=== PATIENT | male | born 1950 | race Caucasian/White ===

== ENCOUNTER 2022-12-01 08:42 | Outpatient (RCR) | payer MEDICARE, BC ==
[2022-12-23] MEDS ORDERED: HYDR-3490 PO (10:49)
[2022-12-23] MEDS ORDERED: AMLO10TA PO (10:49)
[2022-12-23] MEDS ORDERED: ESOM1CAP5 PO (10:49)
[2022-12-23] MEDS ORDERED: LISI20TA33 PO (10:49)
[2022-12-23] MEDS ORDERED: LIPI80TA PO (10:49)
[2022-12-23] MEDS ORDERED: ALLO300T2 PO (10:49)
[2022-12-23] MEDS ORDERED: CLOP75TA2 PO (10:49)
[2022-12-23] MEDS ORDERED: POTA-151 PO (10:49)
[2022-12-23] MEDS ORDERED: ASPI81CH33 PO (10:49)
[2022-12-23] MEDS ORDERED: HYDR50TAB PO (15:59)
== END 2022-12-22 ==
LOC: M OT 08:42
PROVIDERS: ATTEND Registered Nurse
DX: I69.398 Other sequelae of cerebral infarction (principal); R26.89 Other abnormalities of gait and mobility

== ENCOUNTER 2022-12-23 09:37 | Inpatient (IN) | payer MEDICARE, BC ==
[~2022-12-23] VITALS: Ht 165.1 cm; Wt 76.3 kg
[2022-12-23 10:38] LABS: BASO % 0.4 % (0.0-1.0); EOS # 0.1 10^3/uL (0.0-0.5); EOS % 0.9 % (0.0-3.0); HEMATOCRIT 42.3 % (42.0-52.0); HEMOGLOBIN 14.3 g/dl (13.5-17.5); LYMPH # 1.3 10^3/uL (1.5-5.0); LYMPH % 11.3 % (24.0-44.0); MEAN CORPUSCULAR HEMOGLOBIN 31.5 pg (27.0-33.0); MEAN CORPUSCULAR HGB CONC 33.8 g/dl (32.0-36.5); MEAN CORPUSCULAR VOLUME 93.2 fl (80.0-96.0); MONO # 1.1 10^3/uL (0.0-0.8); MONO % 9.3 % (2.0-8.0); NEUTROPHILS # 8.8 10^3/uL (1.5-8.5); NEUTROPHILS % 77.6 % (36.0-66.0); PLATELET COUNT, AUTOMATED 220 10^3/uL (150-450); RED BLOOD COUNT 4.54 10^6/uL (4.30-6.10); WHITE BLOOD COUNT 11.3 10^3/uL (4.0-10.0)
[2022-12-23] MEDS ORDERED: HYDR-3490 PO (10:49)
[2022-12-23] MEDS ORDERED: ASPI81CH33 PO (10:49)
[2022-12-23] MEDS ORDERED: AMLO10TA PO (10:49)
[2022-12-23] MEDS ORDERED: LISI20TA33 PO (10:49)
[2022-12-23] MEDS ORDERED: CLOP75TA2 PO (10:49)
[2022-12-23] MEDS ORDERED: ALLO300T2 PO (10:49)
[2022-12-23] MEDS ORDERED: ESOM1CAP5 PO (10:49)
[2022-12-23] MEDS ORDERED: LIPI80TA PO (10:49)
[2022-12-23] MEDS ORDERED: POTA-151 PO (10:49)
[2022-12-23 10:54] LABS: INR 0.84; PROTHROMBIN TIME 11.7 SECONDS (12.5-14.5)
[2022-12-23 10:55] LABS: PARTIAL THROMBOPLASTIN TIME 26.5 SECONDS (24.8-34.2)
[2022-12-23 11:07] LABS: RSV AMPLIFICATION NEGATIVE (NEGATIVE)
[2022-12-23 11:09] LABS: CALCIUM LEVEL 9.2 MG/DL (8.3-10.6); CREATININE FOR GFR 1.81 MG/DL (0.70-1.30); GLOMERULAR FILTRATION RATE 39.7 (>42); POTASSIUM SERUM 3.5 MMOL/L (3.5-5.1)
[2022-12-23] MEDS ORDERED: HYDR50TAB PO (15:59)
[2022-12-23 16:00] VITALS: BP 126/74
[2022-12-23] MEDS ORDERED: HOME MED LIST COMPLETE! XX SCH (16:25)
[2022-12-23 22:00] VITALS: BP 124/70
[2022-12-24 06:00] VITALS: BP 124/71
[2022-12-24 06:29] LABS: HEMATOCRIT 42.2 % (42.0-52.0); HEMOGLOBIN 14.2 g/dl (13.5-17.5); MEAN CORPUSCULAR HEMOGLOBIN 31.5 pg (27.0-33.0); MEAN CORPUSCULAR HGB CONC 33.6 g/dl (32.0-36.5); MEAN CORPUSCULAR VOLUME 93.6 fl (80.0-96.0); PLATELET COUNT, AUTOMATED 233 10^3/uL (150-450); RED BLOOD COUNT 4.51 10^6/uL (4.30-6.10); WHITE BLOOD COUNT 9.8 10^3/uL (4.0-10.0)
[2022-12-24 07:00] LABS: CALCIUM LEVEL 9.2 MG/DL (8.3-10.6); CREATININE FOR GFR 2.06 MG/DL (0.70-1.30); GLOMERULAR FILTRATION RATE 34.2 (>42); POTASSIUM SERUM 3.3 MMOL/L (3.5-5.1)
[2022-12-24] MEDS: ATORVASTATIN 20 MG TAB PO SCH (08:35)
[2022-12-24] MEDS: ASPIRIN 81MG CHEW TABLET PO SCH (08:35)
[2022-12-24] MEDS: CLOPIDOGREL 75 MG TAB PO SCH (08:36)
[2022-12-24] MEDS: POTASSIUM CHLORIDE 10MEQ SR TABLET PO SCH ×2 (08:37→20:10)
[2022-12-24] MEDS ORDERED: allopurinoL 300 MG TAB PO SCH (09:00)
[2022-12-24] MEDS ORDERED: OMEPRAZOLE 20MG CAP PO SCH (09:00)
[2022-12-24] MEDS ORDERED: LACTATED RINGER'S 1000 ML IV ONE (10:50)
[2022-12-24] MEDS: LR 500 ML IV SCH ×2 (11:20→20:09)
[2022-12-24 13:59] LABS: APPEARANCE, URINE MANUAL CLEAR (CLEAR); COLOR, URINE MANUAL YELLOW (YELLOW); SPECIFIC GRAVITY,URINE MANUAL 1.015 (1.002-1.035)
[2022-12-24 14:00] VITALS: BP 132/81
[2022-12-24 14:00] LABS: BILIRUBIN, URINE MANUAL NEGATIVE (NEGATIVE); BLOOD URINE MANUAL NEGATIVE (NEGATIVE); GLUCOSE, URINE (UA) MANUAL NEGATIVE (NEGATIVE); KETONE, URINE MANUAL NEGATIVE (NEGATIVE); LEUKOCYTE ESTERASE, URINE MAN NEGATIVE (NEGATIVE); NITRITE, URINE MANUAL NEGATIVE (NEGATIVE); PROTEIN, URINE MANUAL TRACE mg/dL (NEGATIVE); UROBILINOGEN, URINE MANUAL NORMAL (NORMAL)
[2022-12-24 14:26] LABS: BACTERIA, URINE SMALL AMOUNT; HYALINE CAST, URINE NONE SEEN /lpf (0-1); MUCUS, URINE SMALL AMOUNT (NEGATIVE); RBC, URINE 0-1 /hpf (0-3); SQUAMOUS EPITHELIAL CELL URINE SMALL AMOUNT /hpf (SMALL AMT); WBC, URINE 0-1 /hpf (0-3)
[2022-12-24 20:45] VITALS: BP 134/83
[2022-12-24] MEDS: POLYVINYL ALCOHOL OPHTH SOLN 15ML (LIQUITEARS) OU PRN (22:57)
[2022-12-25 06:05] LABS: BASO % 0.2 % (0.0-1.0); EOS # 0.1 10^3/uL (0.0-0.5); EOS % 0.5 % (0.0-3.0); HEMATOCRIT 40.9 % (42.0-52.0); HEMOGLOBIN 13.8 g/dl (13.5-17.5); LYMPH # 1.2 10^3/uL (1.5-5.0); LYMPH % 10.1 % (24.0-44.0); MEAN CORPUSCULAR HEMOGLOBIN 31.3 pg (27.0-33.0); MEAN CORPUSCULAR HGB CONC 33.7 g/dl (32.0-36.5); MEAN CORPUSCULAR VOLUME 92.7 fl (80.0-96.0); MONO % 8.1 % (2.0-8.0); NEUTROPHILS # 9.8 10^3/uL (1.5-8.5); NEUTROPHILS % 80.6 % (36.0-66.0); PLATELET COUNT, AUTOMATED 229 10^3/uL (150-450); RED BLOOD COUNT 4.41 10^6/uL (4.30-6.10); WHITE BLOOD COUNT 12.1 10^3/uL (4.0-10.0)
[2022-12-25 06:36] LABS: CREATININE FOR GFR 1.64 MG/DL (0.70-1.30); GLOMERULAR FILTRATION RATE 44.4 (>42); POTASSIUM SERUM 4.1 MMOL/L (3.5-5.1)
[2022-12-25] MEDS: LR 500 ML IV SCH (06:50)
[2022-12-25 06:51] VITALS: BP 136/83
[2022-12-25] MEDS: ATORVASTATIN 20 MG TAB PO SCH (11:22)
[2022-12-25] MEDS: POTASSIUM CHLORIDE 10MEQ SR TABLET PO SCH ×2 (11:22→20:51)
[2022-12-25] MEDS: CLOPIDOGREL 75 MG TAB PO SCH (11:22)
[2022-12-25] MEDS: ASPIRIN 81MG CHEW TABLET PO SCH (11:22)
[2022-12-25] MEDS: PANTOPRAZOLE 40MG TAB (PROTONIX) PO SCH (11:22)
[2022-12-25 11:26] LABS: HEMOGLOBIN A1c 5.8 % (4.0-6.0)
[2022-12-25 14:00] VITALS: BP 160/100
[2022-12-25 18:05] VITALS: BP 150/90
[2022-12-25] MEDS ORDERED: APIXABAN 2.5 MG TAB (ELIQUIS) PO SCH (21:00)
[2022-12-25 22:00] VITALS: BP 150/86
[2022-12-26] MEDS: POLYVINYL ALCOHOL OPHTH SOLN 15ML (LIQUITEARS) OU PRN ×2 (05:06→08:30)
[2022-12-26 06:00] VITALS: BP 136/84
[2022-12-26 06:07] LABS: BASO # 0.1 10^3/uL (0.0-0.2); BASO % 0.5 % (0.0-1.0); EOS # 0.2 10^3/uL (0.0-0.5); EOS % 1.5 % (0.0-3.0); HEMATOCRIT 41.7 % (42.0-52.0); HEMOGLOBIN 13.9 g/dl (13.5-17.5); LYMPH # 2.2 10^3/uL (1.5-5.0); LYMPH % 19.8 % (24.0-44.0); MEAN CORPUSCULAR HEMOGLOBIN 31.3 pg (27.0-33.0); MEAN CORPUSCULAR HGB CONC 33.3 g/dl (32.0-36.5); MEAN CORPUSCULAR VOLUME 93.9 fl (80.0-96.0); MONO # 1.2 10^3/uL (0.0-0.8); MONO % 10.6 % (2.0-8.0); NEUTROPHILS # 7.4 10^3/uL (1.5-8.5); NEUTROPHILS % 67.2 % (36.0-66.0); PLATELET COUNT, AUTOMATED 218 10^3/uL (150-450); RED BLOOD COUNT 4.44 10^6/uL (4.30-6.10)
[2022-12-26 06:38] LABS: CHOLESTEROL RISK RATIO 2.6 (<5); CREATININE FOR GFR 1.49 MG/DL (0.70-1.30); GLOMERULAR FILTRATION RATE 49.6 (>42); HDL CHOLESTEROL 46.1 MG/DL (>40); LDL CHOLESTEROL 62.9 MG/DL (<100); POTASSIUM SERUM 3.8 MMOL/L (3.5-5.1)
[2022-12-26] MEDS: PANTOPRAZOLE 40MG TAB (PROTONIX) PO SCH (08:27)
[2022-12-26] MEDS: ASPIRIN 81MG CHEW TABLET PO SCH (08:28)
[2022-12-26] MEDS: APIXABAN 2.5 MG TAB (ELIQUIS) PO SCH ×2 (08:28→22:11)
[2022-12-26] MEDS: ATORVASTATIN 20 MG TAB PO SCH (08:29)
[2022-12-26] MEDS: POTASSIUM CHLORIDE 10MEQ SR TABLET PO SCH (08:29)
[2022-12-26 14:00] VITALS: BP 159/92
[2022-12-26] MEDS ORDERED: ACETAMINOPHEN TAB 650MG DOSE (2X325MG) PO PRN (21:25)
[2022-12-26 22:14] VITALS: BP 159/91
[2022-12-27] MEDS: SODIUM CHLORIDE NASAL 0.65% SPRAY BTL (OCEAN) PRN ×2 (01:13→08:41)
[2022-12-27 05:38] LABS: BASO # 0.1 10^3/uL (0.0-0.2); BASO % 0.5 % (0.0-1.0); EOS # 0.2 10^3/uL (0.0-0.5); EOS % 2.2 % (0.0-3.0); HEMATOCRIT 43.2 % (42.0-52.0); HEMOGLOBIN 14.5 g/dl (13.5-17.5); LYMPH # 2.5 10^3/uL (1.5-5.0); LYMPH % 24.1 % (24.0-44.0); MEAN CORPUSCULAR HEMOGLOBIN 31.3 pg (27.0-33.0); MEAN CORPUSCULAR HGB CONC 33.6 g/dl (32.0-36.5); MEAN CORPUSCULAR VOLUME 93.1 fl (80.0-96.0); MONO # 1.2 10^3/uL (0.0-0.8); MONO % 11.1 % (2.0-8.0); NEUTROPHILS # 6.5 10^3/uL (1.5-8.5); NEUTROPHILS % 61.6 % (36.0-66.0); PLATELET COUNT, AUTOMATED 246 10^3/uL (150-450); RED BLOOD COUNT 4.64 10^6/uL (4.30-6.10); WHITE BLOOD COUNT 10.5 10^3/uL (4.0-10.0)
[2022-12-27 06:05] LABS: CALCIUM LEVEL 9.6 MG/DL (8.3-10.6); CREATININE FOR GFR 1.5 MG/DL (0.70-1.30); GLOMERULAR FILTRATION RATE 49.3 (>42); POTASSIUM SERUM 3.5 MMOL/L (3.5-5.1)
[2022-12-27 06:36] VITALS: BP 150/91
[2022-12-27] MEDS: ASPIRIN 81MG CHEW TABLET PO SCH (08:38)
[2022-12-27] MEDS: APIXABAN 2.5 MG TAB (ELIQUIS) PO SCH (08:38)
[2022-12-27 08:39] VITALS: BP 150/91
[2022-12-27] MEDS: POTASSIUM CHLORIDE 10MEQ SR TABLET PO SCH (08:39)
[2022-12-27] MEDS: ATORVASTATIN 20 MG TAB PO SCH (08:39)
[2022-12-27] MEDS: PANTOPRAZOLE 40MG TAB (PROTONIX) PO SCH (08:40)
[2022-12-27] MEDS: POLYVINYL ALCOHOL OPHTH SOLN 15ML (LIQUITEARS) OU PRN (08:41)
[2022-12-27] MEDS ORDERED: ELIQ2.5T PO (08:46)
[2022-12-27] MEDS ORDERED: FLON1SPR NARES (08:46)
[2022-12-27] MEDS ORDERED: Sodium Chloride Nasal Spray (08:46)
[2022-12-27] MEDS ORDERED: ELIQ5TAB PO (08:46)
[2022-12-27] MEDS ORDERED: ALLO10TA PO ×2 (08:48→08:49)
[2022-12-27] MEDS ORDERED: Pill Cutter XX (08:49)
[2022-12-27] MEDS ORDERED: PILL CUTTER 1 EACH XX PRN (08:50)
[2022-12-27] MEDS ORDERED: FLUTICASONE PROP 0.05% NASAL SPRAY 16 GM (FLONASE) NARES SCH (09:00)
[2022-12-27] MEDS ORDERED: allopurinoL 100 MG TAB PO SCH (09:00)
== END 2022-12-27 12:45 | disposition home or self-care (01) | DRG 65 ==
LOC: M ED 09:37 → M ED INP 14:37 → ENRESERV 15:06 → M MSPAV 15:55 → OBSVTOIN 12-24 08:57
PROVIDERS: ADMIT Student in an Organized Health Care Education/Training Program; ATTEND Student in an Organized Health Care Education/Training Program
PROC: B246ZZZ Ultrasonography of Right and Left Heart (ICD-10-PCS; principal; 2022-12-24)
DX: I63.532 Cerebral infarction due to unspecified occlusion or stenosis of left posterior cerebral artery (principal); I50.32 Chronic diastolic (congestive) heart failure; I13.0 Hypertensive heart and chronic kidney disease with heart failure and stage 1 through stage 4 chronic kidney disease, or unspecified chronic kidney disease; N18.30 Chronic kidney disease, stage 3 unspecified; E78.5 Hyperlipidemia, unspecified; G47.33 Obstructive sleep apnea (adult) (pediatric); H54.3 Unqualified visual loss, both eyes; I87.2 Venous insufficiency (chronic) (peripheral); K21.9 Gastro-esophageal reflux disease without esophagitis; Z87.442 Personal history of urinary calculi; Z79.82 Long term (current) use of aspirin; Z79.02 Long term (current) use of antithrombotics/antiplatelets; Z79.899 Other long term (current) drug therapy; Z91.041 Radiographic dye allergy status

== ENCOUNTER 2023-02-17 10:26 | Day surgery (SDC) | payer MEDICARE, BC ==
[~2023-02-17] VITALS: Ht 165.1 cm; Wt 73.1 kg
[~2023-02-17 10:26] MED LIST: ALLO100T PO; ALLO10TA PO; ALLO300T2 PO; AMLO10TA PO; ASPI81CH33 PO; CLOP75TA2 PO; ELIQ2.5T PO; ELIQ5TAB PO; ESOM1CAP5 PO; FLON1SPR NARES; HYDR-3490 PO; HYDR50TAB PO; LIPI80TA PO; LISI20TA33 PO; POTA-151 PO; POTA1TAB14 PO; Pill Cutter XX; Sodium Chloride Nasal Spray; ceFAZolin SOD 2 GM in IV 1 EA IV ONE
[2023-02-17] MEDS ORDERED: LR 1,000 ML IV SCH (11:00)
[2023-02-17] MEDS ORDERED: LIDOCAINE 1% MDV 20ML VIAL As Ordered ONE (12:18)
[2023-02-17] MEDS ORDERED: propofoL 200 MG/20 ML VIAL As Ordered ONE ×2 (12:18→12:20)
[2023-02-17] MEDS ORDERED: LIDOCAINE 2% 100MG/5ML SDV (FOR ANES.) As Ordered ONE (12:18)
[2023-02-17] MEDS ORDERED: ONDANSETRON 4MG 2ML VIAL As Ordered ONE (12:19)
[2023-02-17] MEDS ORDERED: fentaNYL 100 MCG/2 ML INJECTION As Ordered ONE (12:22)
[2023-02-17 13:00] VITALS: BP 119/63
== END 2023-02-17 13:28 | disposition home or self-care (01) ==
LOC: M SDC 10:26
PROVIDERS: ATTEND Internal Medicine Cardiovascular Disease
DX: I63.9 Cerebral infarction, unspecified (principal); I10 Essential (primary) hypertension; E78.5 Hyperlipidemia, unspecified; K21.9 Gastro-esophageal reflux disease without esophagitis; Z91.041 Radiographic dye allergy status; Z79.01 Long term (current) use of anticoagulants; Z79.82 Long term (current) use of aspirin; Z79.899 Other long term (current) drug therapy; Z86.73 Personal history of transient ischemic attack (TIA), and cerebral infarction without residual deficits; G47.33 Obstructive sleep apnea (adult) (pediatric)
CPT/HCPCS: 33285; 87635; C1764; J0690; J1100; J2405; J3010

== ENCOUNTER 2023-11-16 16:17 | Observation (INO) | payer MEDICARE, BC ==
[~2023-11-16] VITALS: Ht 165.1 cm; Wt 70.7 kg
[~2023-11-16 16:17] MED LIST changes: +POTA-298 PO; -POTA1TAB14 PO; -ceFAZolin SOD 2 GM in IV 1 EA IV ONE
[2023-11-16 18:16] LABS: BASO % 0.3 % (0.0-1.0); EOS # 0.2 10^3/uL (0.0-0.5); EOS % 2.2 % (0.0-3.0); HEMATOCRIT 40.8 % (42.0-52.0); HEMOGLOBIN 13.7 g/dl (13.5-17.5); LYMPH # 2.5 10^3/uL (1.5-5.0); LYMPH % 28.8 % (24.0-44.0); MEAN CORPUSCULAR HEMOGLOBIN 31.5 pg (27.0-33.0); MEAN CORPUSCULAR HGB CONC 33.6 g/dl (32.0-36.5); MEAN CORPUSCULAR VOLUME 93.8 fl (80.0-96.0); MONO # 0.6 10^3/uL (0.0-0.8); MONO % 7.3 % (2.0-8.0); NEUTROPHILS # 5.3 10^3/uL (1.5-8.5); NEUTROPHILS % 60.9 % (36.0-66.0); PLATELET COUNT, AUTOMATED 234 10^3/uL (150-450); RED BLOOD COUNT 4.35 10^6/uL (4.30-6.10); WHITE BLOOD COUNT 8.8 10^3/uL (4.0-10.0)
[2023-11-16 18:32] LABS: ALBUMIN 3.8 G/DL (3.2-5.2); BILIRUBIN,DIRECT 0.2 MG/DL (<0.4); BILIRUBIN,TOTAL 0.6 MG/DL (0.3-1.2); CALCIUM LEVEL 9.7 MG/DL (8.3-10.6); CREATININE FOR GFR 1.83 MG/DL (0.70-1.30); TOTAL PROTEIN 6.2 G/DL (5.7-8.2)
[2023-11-16 18:37] LABS: POTASSIUM SERUM 4.4 MMOL/L (3.5-5.1)
[2023-11-16] MEDS ORDERED: HYDROMORPHONE HCL 0.5 MG/ 0.5 ML SYRINGE IV ONE (21:25)
[2023-11-16] MEDS ORDERED: NS 1,000 ML IV ONE (21:25)
[2023-11-16] MEDS ORDERED: ONDANSETRON 4MG 2ML VIAL IV ONE (21:25)
[2023-11-16] MEDS ORDERED: FLEET ENEMA PR STA (23:04)
[2023-11-16] MEDS ORDERED: LACTULOSE 20GM/30ML SYRUP UDC PO ONE (23:05)
[2023-11-17 02:31] LABS: RSV AMPLIFICATION NEGATIVE (NEGATIVE)
[2023-11-17] MEDS ORDERED: HYDROMORPHONE HCL 0.5 MG/ 0.5 ML SYRINGE IV PRN (03:10)
[2023-11-17 05:58] VITALS: BP 128/86; TEMP 98.1; O2SAT 97
[2023-11-17] MEDS ORDERED: DOXA2TAB61 PO (06:54)
[2023-11-17] MEDS ORDERED: FLON1SPR (06:54)
[2023-11-17] MEDS ORDERED: ELIQ5TAB PO (06:54)
[2023-11-17] MEDS ORDERED: LISI10TA22 PO (06:54)
[2023-11-17] MEDS ORDERED: SENN8.6T28 PO (06:54)
[2023-11-17] MEDS ORDERED: VITA100093 PO (06:54)
[2023-11-17] MEDS ORDERED: SALI0.6530 NARES (06:54)
[2023-11-17] MEDS ORDERED: HOME MED LIST COMPLETE! XX SCH (06:55)
[2023-11-17] MEDS ORDERED: FLUTICASONE PROP 0.05% NASAL SPRAY 16 GM (FLONASE) PRN (07:20)
[2023-11-17] MEDS ORDERED: SODIUM CHLORIDE NASAL 0.65% SPRAY BTL (OCEAN) PRN (07:20)
[2023-11-17 08:14] LABS: CALCIUM LEVEL 9.3 MG/DL (8.3-10.6); CREATININE FOR GFR 1.64 MG/DL (0.70-1.30); GLOMERULAR FILTRATION RATE 44.3 (>42); POTASSIUM SERUM 3.8 MMOL/L (3.5-5.1)
[2023-11-17] MEDS ORDERED: APIXABAN 5 MG TAB (ELIQUIS) PO SCH (09:00)
[2023-11-17] MEDS ORDERED: SENOKOT S TAB PO SCH ×2 (09:00)
[2023-11-17] MEDS ORDERED: VITAMIN D 1,000 INTERNATIONAL UNITS TABLET PO SCH (09:00)
[2023-11-17] MEDS ORDERED: POTASSIUM CHLORIDE 10MEQ SR TABLET PO SCH (09:00)
[2023-11-17] MEDS ORDERED: allopurinoL 100 MG TAB PO SCH (09:00)
[2023-11-17] MEDS ORDERED: ATORVASTATIN 20 MG TAB PO SCH (09:00)
[2023-11-17 09:22] VITALS: BP 156/87
[2023-11-17] MEDS ORDERED: SENN-52 PO (09:57)
== END 2023-11-17 15:17 | disposition home or self-care (01) ==
LOC: M ED 16:17 → M ED INP 16:18 → ENRESERV 11-17 03:56 → M MSPAV 11-17 05:58
PROVIDERS: ADMIT Internal Medicine; ATTEND Student in an Organized Health Care Education/Training Program
DX: K59.00 Constipation, unspecified (principal); I69.398 Other sequelae of cerebral infarction; N18.9 Chronic kidney disease, unspecified; E11.9 Type 2 diabetes mellitus without complications; I10 Essential (primary) hypertension; E78.00 Pure hypercholesterolemia, unspecified; M10.9 Gout, unspecified; Z91.041 Radiographic dye allergy status; Z79.899 Other long term (current) drug therapy; Z79.01 Long term (current) use of anticoagulants; Z79.02 Long term (current) use of antithrombotics/antiplatelets; Z11.52 Encounter for screening for COVID-19
CPT/HCPCS: 36415; 74176; 80048; 80076; 83690; 85025; 87631; 96374; 96375; 97161; 99285; G0378; J1170; J2405

== ENCOUNTER 2023-11-27 13:41 | Inpatient (IN) | payer MEDICARE, BC ==
[2023-11-27] VITALS (9 sets, daily range): BP systolic 123–138; BP diastolic 71–77; TEMP 97.7; O2SAT 94–99
[~2023-11-27] VITALS: Ht 160 cm; Wt 69.0 kg
[~2023-11-27 13:41] MED LIST changes: +DOXA2TAB61 PO; +LISI10TA22 PO; +SALI0.6530 NARES; +SENN-52 PO; +SENN8.6T28 PO; +VITA100093 PO
[2023-11-27 16:32] LABS: BASO % 0.3 % (0.0-1.0); EOS # 0.1 10^3/uL (0.0-0.5); EOS % 0.8 % (0.0-3.0); HEMATOCRIT 38.6 % (42.0-52.0); HEMOGLOBIN 13.1 g/dl (13.5-17.5); LYMPH # 2.4 10^3/uL (1.5-5.0); LYMPH % 22.9 % (24.0-44.0); MEAN CORPUSCULAR HEMOGLOBIN 31.6 pg (27.0-33.0); MEAN CORPUSCULAR HGB CONC 33.9 g/dl (32.0-36.5); MEAN CORPUSCULAR VOLUME 93.2 fl (80.0-96.0); MONO # 0.7 10^3/uL (0.0-0.8); MONO % 6.3 % (2.0-8.0); NEUTROPHILS # 7.1 10^3/uL (1.5-8.5); NEUTROPHILS % 69.4 % (36.0-66.0); PLATELET COUNT, AUTOMATED 200 10^3/uL (150-450); RED BLOOD COUNT 4.14 10^6/uL (4.30-6.10); WHITE BLOOD COUNT 10.2 10^3/uL (4.0-10.0)
[2023-11-27 16:44] LABS: INR 1.2; PROTHROMBIN TIME 14.8 SECONDS (12.5-14.5)
[2023-11-27 16:45] LABS: PARTIAL THROMBOPLASTIN TIME 29.6 SECONDS (24.8-34.2)
[2023-11-27 17:00] LABS: BLOOD UREA NITROGEN 21 MG/DL (9-23); CALCIUM LEVEL 9.1 MG/DL (8.3-10.6); CARBON DIOXIDE LEVEL 27 MMOL/L (20-31); CHLORIDE LEVEL 105 MMOL/L (98-107); CK-MB VALUE MASS < 1.0 NG/ML (<3.6); CPK CREATINE PHOSPHOKINASE 81 U/L (46-171); CREATININE FOR GFR 1.73 MG/DL (0.70-1.30); GLOMERULAR FILTRATION RATE 41.7 (>42); GLUCOSE, FASTING 92 MG/DL (74-106); MB/CK RELATIVE INDEX 1.23 (< OR =4); POTASSIUM SERUM 3.9 MMOL/L (3.5-5.1); SODIUM LEVEL 139 MMOL/L (136-145)
[2023-11-27] MEDS ORDERED: ASPIRIN 81MG CHEW TABLET PO ONE (21:05)
[2023-11-27] MEDS ORDERED: RIVAROXABAN 15MG TAB (XARELTO) PO ONE (23:40)
[2023-11-28] VITALS (27 sets, daily range): BP systolic 111–136; BP diastolic 66–83; TEMP 97.2–97.9; O2SAT 95–99
[2023-11-28 06:43] LABS: BASO % 0.5 % (0.0-1.0); EOS # 0.1 10^3/uL (0.0-0.5); EOS % 1.9 % (0.0-3.0); HEMATOCRIT 37.2 % (42.0-52.0); HEMOGLOBIN 12.6 g/dl (13.5-17.5); LYMPH # 1.6 10^3/uL (1.5-5.0); LYMPH % 24.2 % (24.0-44.0); MEAN CORPUSCULAR HEMOGLOBIN 31.6 pg (27.0-33.0); MEAN CORPUSCULAR HGB CONC 33.9 g/dl (32.0-36.5); MEAN CORPUSCULAR VOLUME 93.2 fl (80.0-96.0); MONO # 0.5 10^3/uL (0.0-0.8); MONO % 7.5 % (2.0-8.0); NEUTROPHILS # 4.2 10^3/uL (1.5-8.5); NEUTROPHILS % 65.6 % (36.0-66.0); PLATELET COUNT, AUTOMATED 182 10^3/uL (150-450); RED BLOOD COUNT 3.99 10^6/uL (4.30-6.10); WHITE BLOOD COUNT 6.4 10^3/uL (4.0-10.0)
[2023-11-28 07:20] LABS: ALBUMIN 3.5 G/DL (3.2-5.2); BILIRUBIN,TOTAL 0.7 MG/DL (0.3-1.2); CALCIUM LEVEL 9.3 MG/DL (8.3-10.6); CREATININE FOR GFR 1.64 MG/DL (0.70-1.30); GLOMERULAR FILTRATION RATE 44.3 (>42); POTASSIUM SERUM 4.6 MMOL/L (3.5-5.1); TOTAL PROTEIN 5.7 G/DL (5.7-8.2)
[2023-11-28] MEDS ORDERED: MIRA1POW3 PO (08:56)
[2023-11-28] MEDS ORDERED: CVS50CAP PO (08:56)
[2023-11-28] MEDS ORDERED: PANTOPRAZOLE 40MG VIAL IV SCH (09:00)
[2023-11-28] MEDS ORDERED: HOME MED LIST COMPLETE! XX SCH (09:00)
[2023-11-28] MEDS: ASPIRIN 81MG CHEW TABLET PO SCH (09:09)
[2023-11-28] MEDS: PANTOPRAZOLE 40MG TAB (PROTONIX) PO SCH (09:10)
[2023-11-28] MEDS ORDERED: NS 1,000 ML IV ONE (10:50)
[2023-11-28] MEDS ORDERED: BISACODYL 10MG SUPP PR ONE (15:15)
[2023-11-28] MEDS: MIRALAX *UNIT DOSE* 17GM PACKET PO SCH (15:26)
[2023-11-28] MEDS: ACETAMINOPHEN TAB 650MG DOSE (2X325MG) PO PRN (15:26)
[2023-11-28] MEDS: RIVAROXABAN 15MG TAB (XARELTO) PO SCH (17:48)
[2023-11-28] MEDS: SENOKOT S TAB PO SCH (20:26)
[2023-11-28] MEDS: ATORVASTATIN 20 MG TAB PO SCH (21:03)
[2023-11-29] VITALS (25 sets, daily range): BP systolic 132–158; BP diastolic 72–84; TEMP 97.7–98.8; O2SAT 90–99
[2023-11-29] MEDS: ACETAMINOPHEN TAB 650MG DOSE (2X325MG) PO PRN (03:10)
[2023-11-29] MEDS: MIRALAX *UNIT DOSE* 17GM PACKET PO SCH (09:24)
[2023-11-29] MEDS: PANTOPRAZOLE 40MG TAB (PROTONIX) PO SCH (09:25)
[2023-11-29] MEDS: ASPIRIN 81MG CHEW TABLET PO SCH (09:25)
[2023-11-29] MEDS: SENOKOT S TAB PO SCH ×2 (09:25→20:48)
[2023-11-29] MEDS: BISACODYL 10MG SUPP PR SCH ×2 (11:41→20:48)
[2023-11-29] MEDS ORDERED: LACTULOSE 20GM/30ML SYRUP UDC PO SCH (12:00)
[2023-11-29] MEDS: ACETAMINOPHEN TAB 650MG DOSE (2X325MG) PO SCH ×2 (13:13→20:48)
[2023-11-29] MEDS: RIVAROXABAN 15MG TAB (XARELTO) PO SCH (17:45)
[2023-11-29] MEDS: ATORVASTATIN 20 MG TAB PO SCH (20:48)
[2023-11-30] VITALS (15 sets, daily range): BP systolic 135–162; BP diastolic 79–81; TEMP 97.3–97.6; O2SAT 95–98
[2023-11-30] MEDS ORDERED: ATOR1TAB21 PO (07:27)
[2023-11-30] MEDS ORDERED: XARE15TA PO (07:27)
[2023-11-30] MEDS ORDERED: ASPI81CH8 PO (07:27)
[2023-11-30] MEDS ORDERED: MIRALAX *UNIT DOSE* 17GM PACKET PO SCH (09:00)
[2023-11-30] MEDS: SENOKOT S TAB PO SCH (09:56)
[2023-11-30] MEDS: ASPIRIN 81MG CHEW TABLET PO SCH (09:56)
[2023-11-30] MEDS: PANTOPRAZOLE 40MG TAB (PROTONIX) PO SCH (09:57)
[2023-11-30] MEDS: ACETAMINOPHEN TAB 650MG DOSE (2X325MG) PO SCH (09:57)
[2023-11-30] MEDS: BISACODYL 10MG SUPP PR SCH (09:57)
[2023-11-30] MEDS ORDERED: NORV5TAB PO (12:45)
[2023-11-30] MEDS ORDERED: LISI10TA22 PO (12:47)
[2023-11-30] MEDS ORDERED: SENN-52 PO (12:48)
[2023-11-30] MEDS ORDERED: MIRA3350 PO (12:49)
[2023-11-30] MEDS ORDERED: SELF1KIT MC (12:51)
[2023-11-30] MEDS ORDERED: amLODIPine 5 MG TAB PO ONE (13:00)
== END 2023-11-30 13:56 | disposition home health service (06) | DRG 66 ==
LOC: M ED 13:41 → M ED INP 21:33 → M PCU 23:45
PROVIDERS: ADMIT Family Medicine; ATTEND General Practice
PROC: B246ZZZ Ultrasonography of Right and Left Heart (ICD-10-PCS; principal; 2023-11-29)
DX: I63.532 Cerebral infarction due to unspecified occlusion or stenosis of left posterior cerebral artery (principal); I12.9 Hypertensive chronic kidney disease with stage 1 through stage 4 chronic kidney disease, or unspecified chronic kidney disease; N18.30 Chronic kidney disease, stage 3 unspecified; E78.5 Hyperlipidemia, unspecified; I69.311 Memory deficit following cerebral infarction; G47.33 Obstructive sleep apnea (adult) (pediatric); I69.320 Aphasia following cerebral infarction; K21.9 Gastro-esophageal reflux disease without esophagitis; G93.89 Other specified disorders of brain; I69.398 Other sequelae of cerebral infarction; K59.00 Constipation, unspecified; H54.7 Unspecified visual loss; N50.82 Scrotal pain; K57.90 Diverticulosis of intestine, part unspecified, without perforation or abscess without bleeding; N50.3 Cyst of epididymis; Z87.442 Personal history of urinary calculi; Z79.01 Long term (current) use of anticoagulants; Z79.899 Other long term (current) drug therapy; Z91.041 Radiographic dye allergy status

== ENCOUNTER 2024-05-09 06:03 | Day surgery (SDC) | payer MEDICARE ==
[~2024-05-09] VITALS: Ht 165.1 cm; Wt 71.7 kg
[~2024-05-09 06:03] MED LIST changes: +AMLO2.5T3 PO; +ASPI81CH8 PO; +ATOR1TAB21 PO; +CVS1CHW13 PO; +CVS50CAP PO; +ESOM1CAP20 PO; -ESOM1CAP5 PO; +ESOM40CA35 PO; +LISI2.5T9 PO; +MIRA3350 PO; +MIRA33506 PO; +NORV5TAB PO; -SALI0.6530 NARES; +SELF1KIT MC; +SODI88SP NARES; +XARE15TA PO
[2024-05-09] MEDS ORDERED: LIDOCAINE 2% JELLY 6ML SYRINGE As Ordered ONE (07:09)
[2024-05-09] MEDS ORDERED: CETACAINE SPRAY 5GM As Ordered ONE (07:10)
[2024-05-09] MEDS ORDERED: LR 1,000 ML IV SCH (07:10)
[2024-05-09] MEDS ORDERED: propofoL 200 MG/20 ML VIAL As Ordered ONE (07:14)
[2024-05-09] MEDS ORDERED: fentaNYL 100 MCG/2 ML INJECTION As Ordered ONE (07:14)
[2024-05-09] MEDS ORDERED: LIDOCAINE 2% 100MG/5ML SDV (FOR ANES.) As Ordered ONE (07:14)
[2024-05-09] MEDS ORDERED: MIDAZOLAM INJ 2MG/2ML VIAL As Ordered ONE (07:15)
[2024-05-09 08:40] VITALS: BP 162/83; TEMP 97.4; O2SAT 98
== END 2024-05-09 08:40 | disposition home or self-care (01) ==
LOC: M SDC 06:03
PROVIDERS: ATTEND Internal Medicine Cardiovascular Disease
DX: I70.0 Atherosclerosis of aorta (principal); I69.398 Other sequelae of cerebral infarction; G47.30 Sleep apnea, unspecified; Z91.041 Radiographic dye allergy status; Z79.899 Other long term (current) drug therapy
CPT/HCPCS: 93312; 93320; 93325; J2250; J3010